=== PATIENT | female | born 1940 | race Caucasian/White ===

== ENCOUNTER 2016-10-26 11:28 | Day surgery (SDC) | payer MEDICARE, OTHER ==
--- NOTE | ~2016-10-26 | EGD ---
EGD REPORT [facility] [address] [place] [address] NAME: MARITO HERNANDEZ : [birth year] STATUS : REG [facility] [place] PAT#: [id number] AGE: 76 ADM/REG DATE : 10/26/16 MR#: [id number] REPORT SERV DATE: 10/26/16 DICTATED BY: JOSEPH GABRIEL DATE: 10/26/16 REPORT STATUS : Draft TRANSCRIBED BY: [facility] DATE: 10/26/16 [facility] Patient Name: Marito Hernandez Date of : 1940 Attending MD: JOSEPH GABRIEL MD Procedure Date No Time: 10/26/2016 Procedure: Colonoscopy Indications: Crohn's disease of the colon, Change in bowel habits Referring MD: ANNA ORTIZ Medicines: Monitored Anesthesia Care Complications: No immediate complications. Procedure: Pre-Anesthesia Assessment: - ASA Grade Assessment: III - A patient with severe systemic disease. After I obtained informed consent, the scope was passed under direct vision. Throughout the procedure, the patient's blood pressure, pulse, and oxygen saturations were monitored continuously. The PCF [id number] was introduced through the anus and advanced to the transverse colon. The colonoscopy was performed with moderate difficulty due to inadequate bowel prep, significant looping and a tortuous colon. Successful completion of the procedure was aided by applying abdominal pressure. The patient tolerated the procedure well. The quality of the bowel preparation was fair. DUE TO SEVERE COLITIS AND FAIR PREP WE ELECTED TO STOP IN THE TRANSVERSE COLON. Findings: The digital rectal exam was abnormal. Findings include anal stricture.Stricture was too tight for index finger. Little finger would fit through. The transverse colon appeared normal. Biopsies were taken with a cold forceps for histology. The descending colon appeared normal. Biopsies were taken with a cold forceps for histology. few apthous ulcers noted in the distal descending colon. , Biopsies were taken with a cold forceps for histology. Inflammation characterized by altered vascularity, erosions, friability, granularity, confluent ulcerations and deep ulcerations was found in a continuous and circumferential pattern in the sigmoid colon. This was severe in severity, and when compared to previous examinations, the findings are worsened. Biopsies were taken with a cold forceps for histology. Inflammation characterized by deep ulcerations was found as patches EGD REPORT [place] [id number] [facility] [place]. [address] NAME: MARITO HERNANDEZ : [birth year] STATUS : REG [facility] [place] PAT#: [id number] AGE: 76 ADM/REG DATE : 10/26/16 MR#: [id number] REPORT SERV DATE: 10/26/16 DICTATED BY: JOSEPH GABRIEL DATE: 10/26/16 REPORT STATUS : Draft TRANSCRIBED BY: [employer] DATE: 10/26/16 surrounded by normal mucosa in the rectum. This was severe in severity, and when compared to previous examinations, the findings are worsened.There was a skip area in the rectum. Biopsies were taken with a cold forceps for histology. A moderate stenosis measuring 2 cm (in length) x 1 cm (inner diameter) was found at the anus and was traversed. Impression: - Anal stricture found on digital rectal exam. - The transverse colon is normal. Biopsied. - The descending colon is normal. Biopsied. - Inflammation was found in the sigmoid colon secondary to Crohn's disease with colonic involvement. The findings are worsened compared to previous examinations. Biopsied. - Inflammation was found in the rectum secondary to Crohn's disease. The findings are worsened compared to previous examinations. Biopsied. - Stricture at the anus. Recommendation: - Patient has a contact number available for emergencies. The signs and symptoms of potential delayed complications were discussed with the patient. Return to normal activities tomorrow. Written discharge instructions were provided to the patient. - Regular diet. - Continue present medications. - Return to GI clinic in 1 week to discuss treatment options. . - Await pathology results. Procedure Code(s): --- Professional --- 63477, 52, Colonoscopy, flexible, proximal to splenic flexure; with biopsy, single or multiple Diagnosis Code(s): --- Professional --- K62.4, Stenosis of anus and rectum K50.10, Crohn's disease of large intestine without complications K50.90, Crohn's disease, unspecified, without complications R19.4, Change in bowel habit CPT copyright 2013 [employer]. All rights reserved. The codes documented in this report are preliminary and upon cpc coder review may be revised to meet current compliance requirements. EGD REPORT [facility] [address] [address] NAME: MARITO HERNANDEZ : [birth year] STATUS : REG [facility] [place] PAT#: [id number] AGE: 76 ADM/REG DATE : 10/26/16 MR#: [id number] REPORT SERV DATE: 10/26/16 DICTATED BY: JOSEPH GABRIEL DATE: 10/26/16 REPORT STATUS : Draft TRANSCRIBED BY: [employer] DATE: 10/26/16 JOSEPH GABRIEL MD 10/26/2016 2:34 PM This report has been signed electronically. Number of Addenda: 0 Note Initiated On: 10/26/2016 1:39 PM Scope Withdrawal Time 0 hours 16 minutes 10 seconds [address] [id number]
[~2016-10-26 11:28] MED LIST: ARIMIDEX1 PO; ASAB PO; ASACOL HD800 MG PO; ASACOL PO; FERROUS SULF325 M1 PO; METAMUCIL CAN7 OZ PO; MULTIPLE VIT PO; PREV30 PO; PRILOSEC40 MG PO; PROBIOTIC PO; REMICADE IV; V120 PO; VERELAN240 MG PO; VITAMIN D31000 UNIT PO; VITAMIN D400 UNI1 PO; [UNRECOGNIZED DRUG - OTHER]
== END 2016-10-26 23:59 | disposition home or self-care (01) ==
LOC: DMU 11:28
PROVIDERS: Internal Medicine Gastroenterology
PROC: 0DBP8ZX Excision of Rectum, Via Natural or Artificial Opening Endoscopic, Diagnostic (ICD-10-PCS; 2016-10-26)
PROC: 0DBL8ZX Excision of Transverse Colon, Via Natural or Artificial Opening Endoscopic, Diagnostic (ICD-10-PCS; 2016-10-26)
PROC: 0DBN8ZX Excision of Sigmoid Colon, Via Natural or Artificial Opening Endoscopic, Diagnostic (ICD-10-PCS; 2016-10-26)
PROC: 0DBM8ZX Excision of Descending Colon, Via Natural or Artificial Opening Endoscopic, Diagnostic (ICD-10-PCS; principal; 2016-10-26 13:00)
DX: K51.90 Ulcerative colitis, unspecified, without complications (principal); M19.90 Unspecified osteoarthritis, unspecified site; K21.9 Gastro-esophageal reflux disease without esophagitis; D64.9 Anemia, unspecified; Z86.73 Personal history of transient ischemic attack (TIA), and cerebral infarction without residual deficits; Z88.1 Allergy status to other antibiotic agents; Z88.8 Allergy status to other drugs, medicaments and biological substances; Z79.82 Long term (current) use of aspirin; Z79.899 Other long term (current) drug therapy; Z90.89 Acquired absence of other organs; Z90.710 Acquired absence of both cervix and uterus; Z98.890 Other specified postprocedural states; Z98.42 Cataract extraction status, left eye; Z90.49 Acquired absence of other specified parts of digestive tract
CPT/HCPCS: 88305